=== PATIENT | male | born 1985 | race Caucasian/White ===

== ENCOUNTER 2016-11-15 03:17 | Emergency (ER) | payer SELFPAY ==
[~2016-11-15] VITALS: Ht 162.6 cm; Wt 71.0 kg
[2016-11-15 03:20] VITALS: Ht 162.6 cm; Wt 71.0 kg
--- NOTE | 2016-11-15 04:34 | ERD ---
ER Documentation Chief Complaint Date/Time DATE: 11/15/16 TIME: 04:22 Chief Complaint LLQ pain that started 4 hours ago pt denies n/v/d HPI 31-year-old male presents to emergency department for complaints of left lower quadrant abdominal pain started 4 hours prior to arrival, patient was sent here from a clinic for rule out abdominal emergencies. Patient is complaining of left lower quadrant abdominal pain, throbbing patient was 6/scale, not better or worse with anything. Patient did not take any medications to help with symptoms. Patient denies any flank pain. Patient denies hematuria or dysuria. Patient denies any nausea vomiting diarrhea or constipation. ROS All systems reviewed and are negative except as per history of present illness. Medications Home Meds Active Scripts Polyethylene Glycol* (Miralax*) 17 Gm Powd.pack, 17 GM PO DAILY, #7 Prov:STEPHANIE ESTEBAN [employer]TENA[employer] 11/15/16 Phenazopyridine Hcl* (Pyridium*) 200 Mg Tab, 200 MG PO TID Y for URINARY PAIN, # 6 TAB Prov:STEPHANIE ESTEBAN NP 11/15/16 Docusate Sodium* (Colace*) 100 Mg Capsule, 100 MG PO TID, #30 CAP Prov:STEPHANIE ESTEBAN NP 11/15/16 Hydrocodone/Acetaminophen ([place] 5-325 Tablet) 1 Each Tablet, 1 TAB PO Q6H Y for SEVERE PAIN LEVEL 7-10, #20 TAB Prov:STEPHANIE ESTEBAN [employer]TENAN[employer] 11/15/16 Reported Medications [none] Unknown Strength No Conflict Check 11/15/16 Allergies Allergies: Coded Allergies: No Known Allergy (Unverified , 11/15/16) PMhx/Soc Medical and Surgical Hx: pt denies Medical Hx, pt denies Surgical Hx Hx Alcohol Use: No Hx Substance Use: No Hx Tobacco Use: Yes Smoking Status: Light tobacco smoker FmHx Family History: No coronary disease, No diabetes, No other Physical Exam Vitals Vital Signs Date Time Temp Pulse Resp B/P Pulse Ox O2 Delivery O2 Flow Rate FiO2 11/15/16 03:20 97.3 73 20 182/99 100 Physical Exam GENERAL: The patient is well developed and appropriate for usual state of health, in no apparent distress. CHEST: Clear to auscultation bilaterally. There are no rales, wheezes or rhonchi. HEART: Regular rate and rhythm. No murmurs, clicks, rubs or gallops. No S3 or S4. ABDOMEN: Soft, nontender and nondistended. Good bowel sounds. No rebound or guarding. No gross peritonitis. No gross organomegaly or masses. No Fall sign or McBurney point tenderness. BACK: No midline or flank tenderness. EXTREMITIES: Equal pulses bilaterally. There is no peripheral clubbing, cyanosis or edema. No focal swelling or erythema. Full range of motion. Grossly neurovascularly intact. NEURO: Alert and oriented. Cranial nerves 2-12 intact. Motor strength in all 4 extremities with 5/5 strength. Sensation grossly intact. Normal speech and gait. SKIN: There is no apparent rash or petechia. The skin is warm and dry. HEMATOLOGIC AND LYMPHATIC: There is no evidence of excessive bruising or lymphedema. No gross cervical, axillary, or inguinal lymphadenopathy. Result Diagram: 11/15/16 0447 11/15/16 0447 Results 24 hrs Laboratory Tests Test 11/15/16 04:47 Alanine Aminotransferase (ALT/SGPT) 116IU/L Albumin 4.7g/dl Albumin/Globulin Ratio 1.42 Alkaline Phosphatase 130IU/L Anion Gap 21 Aspartate Amino Transf (AST/SGOT) 68IU/L Basophils # 0.010^3/ul Basophils % 0.2% Blood Urea Nitrogen 14mg/dl Calcium Level 9.4mg/dl Carbon Dioxide Level 29mmol/L Chloride Level 102mmol/L Creatinine 0.82mg/dl Direct Bilirubin 0.00mg/dl Eosinophils # 0.110^3/ul Eosinophils % 0.8% Globulin 3.30g/dl Glucose Level 116mg/dl Hematocrit 48.4% Hemoglobin 16.5g/dl Indirect Bilirubin 0.2mg/dl Lipase 92U/L Lymphocytes # 1.010^3/ul Lymphocytes % 9.2% Mean Corpuscular Hemoglobin 30.7pg Mean Corpuscular Hemoglobin Concent 34.2g/dl Mean Corpuscular Volume 89.7fl Mean Platelet Volume 9.4fl Monocytes # 0.410^3/ul Monocytes % 3.9% Neutrophils # 8.910^3/ul Neutrophils % 85.9% Nucleated Red Blood Cells # 0.010^3/ul Nucleated Red Blood Cells % 0.0/100WBC Platelet Count 13241^3/UL Potassium Level 4.5mmol/L Red Blood Count 5.3910^6/ul Red Cell Distribution Width 12.7% Sodium Level 147mmol/L Total Bilirubin 0.2mg/dl Total Protein 8.0g/dl Urine Bacteria FEW Urine Bilirubin NEGATIVE Urine Clarity SL HAZY Urine Color LT. YELLOW Urine Glucose NEGATIVE% Urine Hemoglobin 3+ Urine Ketones NEGATIVE Urine Leukocyte Esterase NEGATIVE Urine Microscopic RBC 25-50/HPF Urine Microscopic WBC 0-2/HPF Urine Nitrite NEGATIVE Urine Specific [place] 1.020 Urine Squamous Epithelial Cells FEW Urine Total Protein NEGATIVE Urine Urobilinogen 0.2 E.U./dL Urine pH 5.5 White Blood Count 10.410^3/ul PROCEDURE: CT ABDOMEN/PELVIS WITHOUT CONTRAST CLINICAL INDICATION: 31-year-old male with abdominal pain. TECHNIQUE: The study was performed utilizing a [employer] VCT 64-slice CT scanner. Direct axial sections were obtained through the abdomen and pelvis without the use of intravenous contrast material. Sagittal and coronal reformations were obtained. Automated exposure control and iterative reconstruction techniques were utilized for this examination. The images were reviewed on a PACS workstation. CTD/vol = 8.0 mGy; Total Exam DLP = 484.6 mGy- cm. COMPARISON: None. FINDINGS: There is minimal bibasilar subsegmental atelectasis. There is no evidence for significant pleural effusion. The liver has a normal size and contour. There is diffuse decreased density throughout the liver consistent with fatty infiltration without focal areas of abnormal density. No intrahepatic nor extrahepatic biliary ductal dilatation is seen. The gallbladder demonstrates no wall thickening nor pericholecystic fluid. No biliary stones are evident. The pancreas is without areas of abnormal attenuation. The spleen is identified and has a normal size without abnormal density. The adrenal glands are unremarkable. There is a small punctate 2 x 2 mm nonobstructing right mid renal calculus. There is a small left lower pole renal erin 3 x 3 mm nonobstructing calculus. There is mild prominence of the left renal collecting system without definite obstructing calculus. Note that there is a calculus in the pelvis which most likely is a phlebolith adjacent to the ureter. The urinary bladder contains urine. There is fecalization of the distal small bowel with mild retained stool within the proximal colon without evidence for obstruction. The appendix is visualized and is without abnormal thickening or surrounding inflammatory reaction. The prostate is not enlarged however there are calcifications within it. There is no significant free fluid. The aortoiliac vessels are without aneurysmal dilatation. The osseous structures are intact. IMPRESSION: 1. Diffuse fatty infiltration of the liver. 2. Bilateral small nonobstructing renal calculi. 3. Mild prominence of the left renal collecting system without definite obstructing calculus. This may represent a recently passed stone. Clinical correlation is necessary. 4. Fecalization distal small bowel with mild retained stool proximal colon without obstruction. 5. No CT evidence for appendicitis. .Garcia Toscano MD, MD Date Time Electronically viewed and signed by .Garcia Toscano MD, MD on 11/15/2016 04:44 .M/ CC: STEPHANIE ESTEBAN [employer]TENA[employer] GR[employer]DS[employer]PER Procedures/MDM Medical Decision Making: Patient's abdominal pain nonspecific at this time, possible viral, patient CT scan abdomen and pelvis with IV possible passing out is done, patient's urine shows +3 hemoglobin consistent with this. There is low suspicion for abdominal emergencies at this time. Patients abdominal exam is normal at this time. Patients radiology exam does not show any abdominal emergencies at this time. There is low suspicion for appendicitis, cholecystitis , abdominal aortic aneurysms or peritonitis at this time. There is low suspicion for sepsis. Patient appears well and is hemodynamically stable. Disposition: Home. Condition: Stable Prescription [place], Pyridium, Miralax, Colace Instructions: Patient is advised to take medications as prescribed. Patient is advised to rest, increase fluid intake and do brat diet for next 1-2 days and progress as tolerated. Patient is advised that if symptoms are worse, severe abdominal pain, uncontrolled vomiting, high fever, severe flank pain, worst signs and symptoms, to return to the emergency department immediately. Otherwise, patient can follow up with primary care doctor in 5-7 days. Departure Diagnosis: Primary Impression: Abdominal pain Abdominal location: left lower quadrant Qualified Code: R10.32 - Left lower quadrant pain Additional Impressions: Renal colic on left side Constipation Constipation type: unspecified constipation type Qualified Code: K59.00 - Constipation, unspecified constipation type Condition: Stable Patient Instructions: Abdominal Pain, Kidney Stone W/ Colic, Kidney Stone, Passed Additional Instructions: Patient is advised to take medications as prescribed. Patient is advised to rest , increase fluid intake and do brat diet for next 1-2 days and progress as tolerated. Patient is advised that if symptoms are worse, severe abdominal pain , uncontrolled vomiting, high fever, severe flank pain, worst signs and symptoms , to return to the emergency department immediately. Otherwise, patient can follow up with primary care doctor in 5-7 days. STEPHANIE ESTEBAN NP Nov 15, 2016 04:32
--- NOTE | 2016-11-15 04:45 | RADRPT ---
PROCEDURE: CT ABDOMEN/PELVIS WITHOUT CONTRAST CLINICAL INDICATION: 31-year-old male with abdominal pain. TECHNIQUE: The study was performed utilizing a [employer] VCT 64-slice CT scanner. Direct axia l sections were obtained through the abdomen and pelvis without the use of intravenous contrast mate rial. Sagittal and coronal reformations were obtained. Automated exposure control and iterative chaz nstruction techniques were utilized for this examination. [facility] CTD/vol = 8.0 mGy; Total Exam DLP = 484.6 mGy-cm. COMPARISON: None. FINDINGS: There is minimal bibasilar subsegmental atelectasis. There is no evidence for significant pleural e ffusion. The liver has a normal size and contour. There is diffuse decreased density throughout th e liver consistent with fatty infiltration without focal areas of abnormal density. No intrahepatic nor extrahepatic biliary ductal dilatation is seen. The gallbladder demonstrates no wall thickening nor pericholecystic fluid. No biliary stones are evident. The pancreas is without areas of abnormal attenuation. The spleen is identified and has a normal size without abnormal density. The adrenal g lands are unremarkable. There is a small punctate 2 x 2 mm nonobstructing right mid renal calculus. There is a small left lower pole renal erin 3 x 3 mm nonobstructing calculus. There is mild promine nce of the left renal collecting system without definite obstructing calculus. Note that there is a calculus in the pelvis which most likely is a phlebolith adjacent to the ureter. The urinary bladder contains urine. There is fecalization of the distal small bowel with mild retained stool wit hin the proximal colon without evidence for obstruction. The appendix is visualized and is without abnormal thickening or surrounding inflammatory reaction. The prostate is not enlarged however there are calcifications within it. There is no significant free fluid. The aortoiliac vessels are witho ut aneurysmal dilatation. The osseous structures are intact. IMPRESSION: 1. Diffuse fatty infiltration of the liver. 2. Bilateral small nonobstructing renal calculi. 3. Mild prominence of the left renal collecting system without definite obstructing calculus. This may represent a recently passed stone. Clinical correlation is necessary. 4. Fecalization distal small bowel with mild retained stool proximal colon without obstruction. 5. No CT evidence for appendicitis. .Garcia Toscano MD, MD Date Time Electronically viewed and signed by .Garcia Toscano MD, MD on 11/15/2016 04:44 .M/
[2016-11-15 05:12] LABS: ADD UMIC YES; URINE BILIRUBIN (Dip) NEGATIVE (NEGATIVE); URINE BLOOD (Dip) 3+ (NEGATIVE); URINE COLOR LT. YELLOW (YELLOW); URINE GLUCOSE (Dip) NEGATIVE (NEGATIVE); URINE KETONES (Dip) NEGATIVE (NEGATIVE); URINE LEUKOCYTE ESTERASE (Dip) NEGATIVE (NEGATIVE); URINE NITRITE (Dip) NEGATIVE (NEGATIVE); URINE TOTAL PROTEIN (Dip) NEGATIVE (NEGATIVE); URINE UROBILINOGEN (Dip) 0.2 E.U./dL (0.1-1.0)
[2016-11-15 05:14] LABS: BASOPHILS % 0.2 % (0.0-2.0); EOSINOPHILS # 0.1 10^3/ul (0.0-0.5); EOSINOPHILS % 0.8 % (0.0-7.0); HEMATOCRIT 48.4 % (42.0-52.0); HEMOGLOBIN 16.5 g/dl (14.0-18.0); LYMPHOCYTES % 9.2 % (15.0-51.0); MEAN CORPUSCULAR HEMOGLOBIN 30.7 pg (29.0-33.0); MEAN CORPUSCULAR HGB CONC 34.2 g/dl (32.0-37.0); MEAN CORPUSCULAR VOLUME 89.7 fl (82.0-101.0); MEAN PLATELET VOLUME 9.4 fl (7.4-10.4); MONOCYTE # 0.4 10^3/ul (0.3-0.9); MONOCYTES % 3.9 % (0.0-11.0); NEUTROPHIL # 8.9 10^3/ul (1.6-7.5); NEUTROPHILS % 85.9 % (39.0-77.0); PLATELET COUNT 205 10^3/UL (140-440); RED BLOOD COUNT 5.39 10^6/ul (4.70-6.10); RED CELL DISTRIBUTION WIDTH 12.7 % (11.5-14.5); UNCORRECTED WBC 10.4 10^3/ul (4.8-10.8); WHITE BLOOD COUNT 10.4 10^3/ul (4.8-10.8)
[2016-11-15 05:17] LABS: CONDITION 1
[2016-11-15 05:26] LABS: BACTERIA,URINE FEW; SQUAMOUS EPITHELIAL CELL,UR FEW; URINE RBCS 25-50 /HPF (0)
[2016-11-15] MEDS ORDERED: POLY17PO6 PO (05:31)
[2016-11-15] MEDS ORDERED: DOCU-144 PO (05:31)
[2016-11-15] MEDS ORDERED: HYDR-906 PO (05:31)
[2016-11-15] MEDS ORDERED: PHEN-538 PO (05:31)
[2016-11-15 05:32] LABS: ALBUMIN 4.7 g/dl (3.3-4.9); POTASSIUM 4.5 mmol/L (3.5-5.1)
[2016-11-15 05:34] LABS: ALBUMIN/GLOBULIN RATIO 1.42; BILIRUBIN,INDIRECT 0.2 mg/dl (0-1.1); BILIRUBIN,TOTAL 0.2 mg/dl (0.2-1.3); CREATININE 0.82 mg/dl (0.61-1.24)
[2016-11-15 05:35] LABS: CALCIUM 9.4 mg/dl (8.4-10.2)
[2016-11-15 06:13] VITALS: BP 130/78; PULSE 60; RESP 16; TEMP 98.3
== END 2016-11-15 06:15 | disposition home or self-care (01) ==
LOC: FTE 03:17
DX: R10.32 Left lower quadrant pain (principal); K59.00 Constipation, unspecified; F17.210 Nicotine dependence, cigarettes, uncomplicated
CPT/HCPCS: 36415; 74176; 80053; 81001; 81003; 83690; 85025